=== PATIENT | female | born 1955 | race Asian ===

== ENCOUNTER 2017-08-16 11:40 | Observation (INO) | payer BC, OTHER ==
[~2017-08-16] VITALS: Ht 170.2 cm; Wt 158.8 kg
[2017-08-16] MEDS ORDERED: ONDANSETRON HCL 4MG/2ML VIAL IV STA (15:04)
[2017-08-16 15:59] LABS: BASOPHILS % 0.6 % (0.0-2.0); EOSINOPHILS % 4.3 % (0.0-5.0); HEMATOCRIT. 39.3 % (36.0-48.0); HEMOGLOBIN. 13.1 g/dL (12.0-16.0); LYMPHOCYTES % 37.8 % (20.0-50.0); MEAN CORPUSCULAR HEMOGLOBIN 29.6 pg (28.0-32.0); MEAN CORPUSCULAR VOLUME 88.6 fL (81.0-99.0); MEAN PLATELET VOLUME 6.9 fl (7.4-10.4); MONOCYTES % 9.2 % (2.0-8.0); NEUTROPHILS % 48.1 % (40.0-76.0); PLATELET 217 x1000/uL (130-400); RED BLOOD CELL COUNT 4.43 mill/uL (4.2-5.4); RED CELL DISTRIBUTION WIDTH 12.6 % (11.6-14.6)
[2017-08-16 16:03] LABS: CHLORIDE 103 mEq/L (98-107)
[2017-08-16 16:05] LABS: D-DIMER 0.58 mg/L FEU (<0.50); INR 1.1; PROTHROMBIN TIME 11.4 sec (9.4-11.6)
[2017-08-16 16:11] LABS: CARBON DIOXIDE 30 mEq/L (21-32)
[2017-08-16 16:12] LABS: CLARITY URINE CLEAR (CLEAR); COLOR URINE YELLOW (YELLOW); KETONES URINE NEGATIVE (NEGATIVE); LEUKOCYTE ESTERASE URINE TRACE (NEGATIVE); NITRITE URINE NEGATIVE (NEGATIVE); OCCULT BLOOD URINE NEGATIVE (NEGATIVE); PROTEIN URINE NEGATIVE (NEGATIVE); SPECIFIC GRAVITY URINE 1.022 (1.005-1.030)
[2017-08-16 16:14] LABS: TROPONIN I < 0.02 ng/mL (0.00-0.04)
[2017-08-17] VITALS (7 sets, daily range): BP systolic 95–128; BP diastolic 52–84
[2017-08-17] MEDS ORDERED: CARV6.2548 PO (00:17)
[2017-08-17] MEDS ORDERED: AMLO5TAB88 PO (00:17)
[2017-08-17] MEDS ORDERED: LISI40TA4 PO (00:17)
[2017-08-17] MEDS ORDERED: IBUP100O19 PO (00:20)
[2017-08-17] MEDS ORDERED: AMLO10TA80 PO (00:20)
[2017-08-17] MEDS ORDERED: ASPI-864 PO (00:20)
[2017-08-17] MEDS ORDERED: CLONIDINE 0.1MG TABLET PO PRN (01:15)
[2017-08-17] MEDS ORDERED: MAGNESIUM/ALUMINUM HYDROXIDE/SIMETHICONE 30ML UDC PO PRN (01:15)
[2017-08-17] MEDS ORDERED: ACETAMINOPHEN 325MG TABLET PO PRN (01:15)
[2017-08-17] MEDS ORDERED: DIPHENHYDRAMINE 50MG/ML VIAL IV PRN (01:15)
[2017-08-17] MEDS ORDERED: ONDANSETRON HCL 4MG/2ML VIAL IV PRN (01:15)
[2017-08-17] MEDS ORDERED: SODIUM CHLORIDE 0.9% INJ 3ML FLUSH IVF SCH (06:00)
[2017-08-17] MEDS ORDERED: AMLODIPINE 10MG TABLET PO SCH (09:00)
[2017-08-17] MEDS ORDERED: CARVEDILOL 6.25 MG TABLET PO SCH (09:00)
[2017-08-17] MEDS ORDERED: ASPIRIN 81MG EC TABLET PO SCH (09:00)
[2017-08-17] MEDS ORDERED: LISINOPRIL 20MG TABLET PO SCH (09:00)
== END 2017-08-17 17:00 | disposition home or self-care (01) ==
LOC: ER 11:40 → 5WST 16:36 → INTOOBSV 16:36 → EDBEDREQTM 16:38 → EDBEDREQ 16:38 → ENRESERV 22:20
PROVIDERS: ADMIT Internal Medicine; ATTEND Internal Medicine
DX: R07.89 Other chest pain (principal); I10 Essential (primary) hypertension; I50.9 Heart failure, unspecified; E78.00 Pure hypercholesterolemia, unspecified; J45.909 Unspecified asthma, uncomplicated; E66.9 Obesity, unspecified
CPT/HCPCS: 36415; 71045; 80053; 81001; 83690; 83880; 84443; 84484; 85025; 85379; 85610; 85730; 93005; 99285; G0378

== ENCOUNTER 2017-10-24 01:16 | Observation (INO) | payer BC ==
[~2017-10-24] VITALS: Ht 170.2 cm; Wt 157.4 kg
[~2017-10-24 01:16] MED LIST: AMLO10TA80 PO; ASPI-864 PO; CARV6.2548 PO; IBUP-516 PO; LISI40TA4 PO
[2017-10-24] MEDS ORDERED: ASPIRIN 81MG TABLET PO ONE (02:00)
[2017-10-24 02:35] LABS: BASOPHILS % 0.5 % (0.0-2.0); EOSINOPHILS % 5.7 % (0.0-5.0); HEMATOCRIT. 35.3 % (36.0-48.0); HEMOGLOBIN. 11.9 g/dL (12.0-16.0); LYMPHOCYTES % 31.8 % (20.0-50.0); MEAN CORPUSCULAR HEMOGLOBIN 29.4 pg (28.0-32.0); MEAN CORPUSCULAR VOLUME 87.1 fL (81.0-99.0); MEAN PLATELET VOLUME 6.6 fl (7.4-10.4); MONOCYTES % 11.6 % (2.0-8.0); NEUTROPHILS % 50.4 % (40.0-76.0); PLATELET 208 x1000/uL (130-400); RED BLOOD CELL COUNT 4.05 mill/uL (4.2-5.4); RED CELL DISTRIBUTION WIDTH 13.4 % (11.6-14.6)
[2017-10-24 02:42] LABS: PROTHROMBIN TIME 10.7 sec (9.4-11.6)
[2017-10-24 02:55] LABS: CHLORIDE 103 mEq/L (98-107); ETHANOL BLOOD < 10 mg/dL
[2017-10-24] MEDS ORDERED: FUROSEMIDE 20MG/2ML VIAL IVP NR (03:02)
[2017-10-24 05:50] VITALS: BP 99/51
[2017-10-24] MEDS ORDERED: IBUP-2271 PO (05:55)
[2017-10-24] MEDS ORDERED: HYDR12.529 PO (05:55)
[2017-10-24 08:00] VITALS: BP 109/59
[2017-10-24 08:34] VITALS: BP 99/55
[2017-10-24 12:00] VITALS: BP 107/60
[2017-10-24 15:36] LABS: CREATINE KINASE 162 IU/L (26-192)
[2017-10-24 15:44] LABS: T4 FREE 1.57 ng/dL (0.76-1.46)
[2017-10-24] MEDS ORDERED: CLONIDINE 0.1MG TABLET PO PRN (15:45)
[2017-10-24] MEDS ORDERED: HYDROCODONE/ACETAMINOPHEN 5/325MG TABLET PO PRN (15:45)
[2017-10-24] MEDS ORDERED: IPRATROPIUM/ALBUTEROL 0.5-3(2.5)MG/3ML NEB INH PRN (15:45)
[2017-10-24] MEDS ORDERED: ACETAMINOPHEN 325MG TABLET PO PRN (15:45)
[2017-10-24] MEDS ORDERED: ONDANSETRON HCL 4MG/2ML VIAL IV PRN (15:45)
[2017-10-24 16:00] VITALS: BP 119/66
[2017-10-24] MEDS: ENOXAPARIN 40MG/0.4ML SYR SUBCUT SCH (17:03)
[2017-10-24 20:00] VITALS: BP 118/69
[2017-10-24 23:35] LABS: CREATINE KINASE 145 IU/L (26-192)
[2017-10-25] VITALS: BP 125/59
[2017-10-25 04:00] VITALS: BP 116/67
[2017-10-25] MEDS: ENOXAPARIN 40MG/0.4ML SYR SUBCUT SCH (05:36)
[2017-10-25 07:00] LABS: BASOPHILS % 0.5 % (0.0-2.0); HEMATOCRIT. 36.4 % (36.0-48.0); HEMOGLOBIN. 12.2 g/dL (12.0-16.0); LYMPHOCYTES % 31.7 % (20.0-50.0); MEAN CORPUSCULAR HEMOGLOBIN 29.6 pg (28.0-32.0); MEAN CORPUSCULAR VOLUME 88.7 fL (81.0-99.0); MONOCYTES % 10.1 % (2.0-8.0); NEUTROPHILS % 51.7 % (40.0-76.0); PLATELET 226 x1000/uL (130-400); RED BLOOD CELL COUNT 4.11 mill/uL (4.2-5.4); RED CELL DISTRIBUTION WIDTH 13.4 % (11.6-14.6)
[2017-10-25 08:00] VITALS: BP 126/82
[2017-10-25] MEDS ORDERED: REGADENOSON 0.4 MG/5 ML IV ONE ×2 (08:30→12:01)
[2017-10-25 08:36] LABS: CHLORIDE 104 mEq/L (98-107)
[2017-10-25 08:52] LABS: CREATINE KINASE 136 IU/L (26-192); CREATINE KINASE MB FRACTION 0.8 ng/mL (0.5-3.6)
[2017-10-25] MEDS ORDERED: FUROSEMIDE 40MG/4ML VIAL IV SCH (09:00)
[2017-10-25] MEDS ORDERED: ASPIRIN 81MG EC TABLET PO SCH (09:00)
[2017-10-25] MEDS ORDERED: ASPIRIN 81MG TABLET PO SCH (09:00)
[2017-10-25 11:04] LABS: T4 FREE 1.61 ng/dL (0.76-1.46)
[2017-10-25 13:27] VITALS: BP 169/68
[2017-10-25 15:51] VITALS: BP 115/73
[2017-10-25 15:54] VITALS: BP 115/73
== END 2017-10-25 17:50 | disposition home or self-care (01) ==
LOC: ER 01:16 → INTOOBSV 03:06 → 6WST 03:06 → EDBEDREQ 03:10 → EDBEDREQTM 03:10 → ENRESERV 03:30
PROVIDERS: ADMIT Internal Medicine; ATTEND Internal Medicine
DX: R07.89 Other chest pain (principal); I11.0 Hypertensive heart disease with heart failure; I50.9 Heart failure, unspecified; E78.5 Hyperlipidemia, unspecified; J45.909 Unspecified asthma, uncomplicated; E66.01 Morbid (severe) obesity due to excess calories; Z82.49 Family history of ischemic heart disease and other diseases of the circulatory system; Z79.899 Other long term (current) drug therapy
CPT/HCPCS: 36415; 71045; 78452; 80053; 80061; 82550; 82553; 83036; 83690; 83735; 83880; 84439; 84443; 84484; 85025; 85379; 85610; 93005; 93017; 93306; 93970; 96372; 96374; 96376; 99285; A9500; G0378; G0482; J1650; J1940; J2785

== ENCOUNTER 2018-04-02 15:32 | Emergency (ER) | payer SELFPAY ==
[~2018-04-02] VITALS: Ht 172.7 cm; Wt 121.0 kg
[~2018-04-02 15:32] MED LIST changes: +HYDR12.529 PO; +IBUP-2271 PO; -IBUP-516 PO
[2018-04-02 18:37] LABS: BASOPHILS % 0.4 % (0.0-2.0); EOSINOPHILS % 2.7 % (0.0-5.0); HEMATOCRIT. 35.9 % (36.0-48.0); LYMPHOCYTES % 20.6 % (20.0-50.0); MEAN CORPUSCULAR HEMOGLOBIN 29.1 pg (28.0-32.0); MEAN CORPUSCULAR VOLUME 86.7 fL (81.0-99.0); MEAN PLATELET VOLUME 6.8 fl (7.4-10.4); MONOCYTES % 10.7 % (2.0-8.0); NEUTROPHILS % 65.6 % (40.0-76.0); PLATELET 191 x1000/uL (130-400); RED BLOOD CELL COUNT 4.14 mill/uL (4.2-5.4); RED CELL DISTRIBUTION WIDTH 14.4 % (11.6-14.6)
[2018-04-02 18:42] LABS: CHLORIDE 102 mEq/L (98-107)
[2018-04-02 18:43] LABS: INR 1.1; PROTHROMBIN TIME 10.6 sec (9.1-11.1)
[2018-04-02 19:06] VITALS: BP 105/58
== END 2018-04-02 20:23 | disposition home or self-care (01) ==
LOC: ER 15:32
DX: R53.1 Weakness (principal); R51 Headache; I11.0 Hypertensive heart disease with heart failure; I50.9 Heart failure, unspecified; I25.2 Old myocardial infarction
CPT/HCPCS: 36415; 71045; 80053; 83880; 84484; 85025; 85610; 93005; 99285; Z7610